=== PATIENT | male | born 1965 | race Hispanic/Latino ===

== ENCOUNTER 2023-10-22 10:18 | Emergency (ER) | payer OTHER ==
[~2023-10-22] VITALS: Ht 165.1 cm; Wt 83.9 kg
[2023-10-22 10:42] LABS: APPEARANCE,URINE CLEAR (CLEAR); BILIRUBIN,URINE NEGATIVE (NEGATIVE); COLOR,URINE LIGHT-YELLOW (YELLOW); GLUCOSE, URINE (UA) NEGATIVE (NEGATIVE); KETONES,URINE NEGATIVE (NEGATIVE); LEUKOCYTE ESTERASE ,URINE NEGATIVE Leu/uL (NEGATIVE); NITRATE,URINE NEGATIVE (NEGATIVE); OCCULT BLOOD,URINE MODERATE (NEGATIVE); PH,URINE 6.5 (5.0-8.0); PROTEIN,URINE NEGATIVE (NEGATIVE); UROBILINOGEN,URINE 0.2 mg/dL (0.2-1.0)
[2023-10-22 10:46] LABS: ADD UA MICROSCOPIC YES
[2023-10-22 10:47] LABS: BACTERIA,URINE RARE /HPF (None Seen)
[2023-10-22 11:15] LABS: BASOPHILS # (AUTO) 0.03 K/uL (0.00-0.20); BASOPHILS % (AUTO) 0.5 % (0.0-5.0); EOSINOPHILS # (AUTO) 0.07 K/uL (0.00-0.70); EOSINOPHILS % (AUTO) 1.1 % (0.0-8.0); HEMATOCRIT 42.8 % (42-54); IMMATURE GRANULOCYTE ABSOLUTE 0.02 K/uL (0-1); LYMPHOCYTES % (AUTO) 31.9 % (21.0-51.0); MEAN CORPUSCULAR HEMOGLOBIN 32.6 pg (27.0-33.0); MEAN CORPUSCULAR HGB CONC 33.9 g/dL (32.0-36.0); MEAN CORPUSCULAR VOLUME 96.2 fL (79-99); MONOCYTES # (AUTO) 0.5 K/uL (0.1-1.0); MONOCYTES % (AUTO) 8.8 % (3.0-13.0); NEUTROPHILS # (AUTO) 3.5 K/uL (1.8-7.7); NEUTROPHILS % (AUTO) 57.4 % (40.0-77.0); PLATELET COUNT (AUTO) 235 K/uL (130-400); RED BLOOD CELL COUNT(AUTO) 4.45 MIL/uL (4.50-6.20); RED CELL DISTRIBUTION WIDTH 12.5 % (11.0-15.5); WHITE BLOOD COUNT (AUTO) 6.1 K/uL (4.8-10.8)
[2023-10-22 11:21] LABS: CREATININE 0.9 mg/dL (0.5-1.3); POTASSIUM 4.1 mmol/L (3.5-5.1)
[2023-10-22 11:26] LABS: BILIRUBIN,TOTAL 1.3 mg/dL (0.2-1.0); TOTAL PROTEIN, SERUM 7.7 g/dL (6.0-8.3)
[2023-10-22 11:33] LABS: INR 1.01 (0.85-1.15); PROTHROMBIN TIME 10.9 SEC (9.6-11.6)
[2023-10-22 11:34] LABS: PARTIAL THROMBOPLASTIN TIME 25.4 SEC (26.3-35.5)
[2023-10-22 12:19] VITALS: BP 147/88; PULSE 61; RESP 16; O2SAT 99
== END 2023-10-22 12:19 | disposition home or self-care (01) ==
LOC: EDH 10:18 → EDBD 10:18 → EDH 12:19
DX: R31.9 Hematuria, unspecified (principal)
CPT/HCPCS: 36415; 80053; 81001; 85025; 85610; 85730

== ENCOUNTER → 2023-12-24 | Outpatient (CLI) | payer OTHER ==
[2023-12-24 10:58] LABS: APPEARANCE,URINE CLEAR (CLEAR); BILIRUBIN,URINE NEGATIVE (NEGATIVE); COLOR,URINE COLORLESS (YELLOW); GLUCOSE, URINE (UA) NEGATIVE (NEGATIVE); KETONES,URINE NEGATIVE (NEGATIVE); LEUKOCYTE ESTERASE ,URINE NEGATIVE Leu/uL (NEGATIVE); NITRATE,URINE NEGATIVE (NEGATIVE); OCCULT BLOOD,URINE MODERATE (NEGATIVE); PH,URINE 6.5 (5.0-8.0); PROTEIN,URINE NEGATIVE (NEGATIVE); UROBILINOGEN,URINE 0.2 mg/dL (0.2-1.0)
[2023-12-24 11:40] LABS: ADD UA MICROSCOPIC YES
== END | disposition home or self-care (01) ==
LOC: LAB 10:12
PROVIDERS: ATTEND Internal Medicine Nephrology
DX: Z12.5 Encounter for screening for malignant neoplasm of prostate (principal); N39.0 Urinary tract infection, site not specified
CPT/HCPCS: 36415; 81001; 84153; 87086

== ENCOUNTER → 2024-01-13 | Outpatient (CLI) | payer OTHER ==
[2024-01-13 15:37] LABS: APPEARANCE,URINE CLEAR (CLEAR); BILIRUBIN,URINE NEGATIVE (NEGATIVE); COLOR,URINE LIGHT-YELLOW (YELLOW); GLUCOSE, URINE (UA) NEGATIVE (NEGATIVE); KETONES,URINE NEGATIVE (NEGATIVE); LEUKOCYTE ESTERASE ,URINE 75 Leu/uL (NEGATIVE); NITRATE,URINE NEGATIVE (NEGATIVE); OCCULT BLOOD,URINE LARGE (NEGATIVE); PH,URINE 6.5 (5.0-8.0); PROTEIN,URINE 10 mg/dL (NEGATIVE); UROBILINOGEN,URINE 0.2 mg/dL (0.2-1.0)
[2024-01-13 15:46] LABS: ADD UA MICROSCOPIC YES
[2024-01-13 15:52] LABS: MUCUS,URINE RARE LPF (None Seen); RBC,URINE 51-100 /HPF (0-1); SQUAMOUS EPITHELIAL CELL,UR RARE /HPF (0-2); WBC,URINE 51-100 /HPF (0-1)
[2024-01-13 16:11] LABS: HIV 1&2 ANTIBODY Non-Reactive (Negative); HIV-1 p24 Antigen Non-Reactive (Negative)
[2024-01-15 15:04] LABS: RAPID PLASMA REAGIN NONREACTIVE (NONREACTIVE)
== END | disposition home or self-care (01) ==
LOC: LAB 14:12
PROVIDERS: ATTEND Internal Medicine Nephrology
DX: Z11.3 Encounter for screening for infections with a predominantly sexual mode of transmission (principal)
CPT/HCPCS: 36415; 81001; 86592; 86701; 87086; 87390; 87491; 87591

== ENCOUNTER → 2024-02-12 | Outpatient (CLI) | payer OTHER ==
[2024-02-12 13:57] LABS: ALBUMIN 3.9 g/dL (3.5-5.0); BILIRUBIN,DIRECT 0.2 mg/dL (0.0-0.3); BILIRUBIN,TOTAL 0.9 mg/dL (0.2-1.0); CREATININE 0.9 mg/dL (0.5-1.3); TOTAL PROTEIN, SERUM 7.5 g/dL (6.0-8.3)
== END | disposition home or self-care (01) ==
LOC: LAB 12:29
PROVIDERS: ATTEND Urology
DX: C61 Malignant neoplasm of prostate (principal)
CPT/HCPCS: 36415; 80076; 82565; 84520

== ENCOUNTER → 2024-02-17 | Outpatient (CLI) | payer OTHER ==
--- NOTE | 2024-02-18 09:22 | HMCIMG ---
NM BONE SCAN WHOLE BODY REASON: C61 Malignant Prostate CA COMPARISON: CT abdomen and pelvis 02/18/2024 TECHNIQUE: Whole-body and spot images are obtained following administration of 25 mCi technetium 99 MDP. FINDINGS: There is abnormal uptake in the right half of the L5 vertebral body. Correlation with CT scan shows a subtle corresponding lesion. Findings are consistent with metastatic disease. There is an additional focal lesion in a left posterior rib, approximately the eighth rib. There is a small lesion mid shaft of the right femur. There is a small lesion in the neck of the proximal left femur, this shows is a sclerotic lesion on the CT scan Remainder of exam is unremarkable. There are no other focal osseous IMPRESSION: 1. Findings consistent with osseous metastatic disease in the L5 vertebral body, the left posterior eighth rib, mid shaft of the right femur and in the neck of the proximal left femur.
== END | disposition home or self-care (01) ==
LOC: RAH 12:56
PROVIDERS: ATTEND Urology
DX: C61 Malignant neoplasm of prostate (principal)
CPT/HCPCS: 78306; A9503

== ENCOUNTER → 2024-02-18 | Outpatient (CLI) | payer OTHER ==
[~2024-02-18] MED LIST: IOHEXOL 350 MG/ML 100ML INFUS..BTL IV ONE
--- NOTE | 2024-02-18 10:53 | HMCIMG ---
CT ABDOMEN/PELVIS W/WO CONTRAS REASON: PROSTATE CA COMPARISON: None. TECHNIQUE: Images are obtained from lung bases to the symphysis pubis following IV contrast, 100 cc Omnipaque 350. Oral contrast was administered as well. FINDINGS: Lung bases are clear. There are no focal liver lesions. There are normal-appearing kidneys.. Spleen and pancreas appear unremarkable. The gallbladder appears normal as well. Bowel loops appear unremarkable. This includes normal appearance of the appendix There is no evidence of free fluid or intraperitoneal air. There are no focal fluid collections. There is periaortic and pelvic lymphadenopathy. Periaortic lymph nodes include a 1.9 cm node in the left renal hilum and a 3.2 cm node anterior to the inferior vena cava near the lower pole of the right kidney. There is bulky lymphadenopathy in the right common and internal iliac region, there is right-sided lymph node mass measuring 7.4 x 5.5 cm axial dimension. There are some additional smaller obturator nodes present bilaterally. Prostate measures 5.5 x 4.8 cm axial dimension. The superior margin of the prostate appears to invade the base of the urinary bladder in the region of the trigone, present to the right. The urinary bladder appears thick-walled but is nondistended. The anterior abdominal wall is intact 0 reason bone scan was positive in multiple areas. There is a subtle lesion to the right of midline in the L5 vertebral body measuring 3.8. The lesion in the left femoral neck is present as a sclerotic 2.4 cm area on the CT scan. Remaining visualized osseous structures appear unremarkable. IMPRESSION: 1. 1. Retroperitoneal and pelvic lymphadenopathy most pronounced in the right hemipelvis as described above. 2. Enlarged prostate, prostate appears to invade the right side of the base of the bladder 3. Osseous metastatic disease also seen on accompanying bone scan 02/17/2024. CT was performed with one or more following dose reduction techniques: automated exposure control, adjustment of the mA and kv according to patient's size, or use of a iterative reconstruction technique.
== END | disposition home or self-care (01) ==
LOC: RAH 07:07
PROVIDERS: ATTEND Urology
DX: C61 Malignant neoplasm of prostate (principal); C79.51 Secondary malignant neoplasm of bone; N40.0 Benign prostatic hyperplasia without lower urinary tract symptoms
CPT/HCPCS: 74178; Q9967

== ENCOUNTER → 2024-03-29 | Outpatient (CLI) | payer OTHER ==
[2024-03-29 08:47] LABS: BASOPHILS # (AUTO) 0.03 K/uL (0.00-0.20); BASOPHILS % (AUTO) 0.6 % (0.0-5.0); EOSINOPHILS # (AUTO) 0.13 K/uL (0.00-0.70); EOSINOPHILS % (AUTO) 2.5 % (0.0-8.0); HEMATOCRIT 41.1 % (42-54); IMMATURE GRANULOCYTE ABSOLUTE 0.03 K/uL (0-1); LYMPHOCYTES % (AUTO) 37.8 % (21.0-51.0); MEAN CORPUSCULAR HEMOGLOBIN 32.4 pg (27.0-33.0); MEAN CORPUSCULAR HGB CONC 33.6 g/dL (32.0-36.0); MEAN CORPUSCULAR VOLUME 96.5 fL (79-99); MONOCYTES # (AUTO) 0.5 K/uL (0.1-1.0); MONOCYTES % (AUTO) 8.9 % (3.0-13.0); NEUTROPHILS # (AUTO) 2.6 K/uL (1.8-7.7); NEUTROPHILS % (AUTO) 49.6 % (40.0-77.0); PLATELET COUNT (AUTO) 262 K/uL (130-400); RED BLOOD CELL COUNT(AUTO) 4.26 MIL/uL (4.50-6.20); RED CELL DISTRIBUTION WIDTH 12.5 % (11.0-15.5); WHITE BLOOD COUNT (AUTO) 5.3 K/uL (4.8-10.8)
[2024-03-29 08:57] LABS: HEMOGLOBIN A1C 5.9 % (4.0-6.0)
[2024-03-29 09:10] LABS: APPEARANCE,URINE CLEAR (CLEAR); BILIRUBIN,URINE NEGATIVE (NEGATIVE); COLOR,URINE COLORLESS (YELLOW); GLUCOSE, URINE (UA) NEGATIVE (NEGATIVE); KETONES,URINE NEGATIVE (NEGATIVE); LEUKOCYTE ESTERASE ,URINE NEGATIVE Leu/uL (NEGATIVE); NITRATE,URINE NEGATIVE (NEGATIVE); OCCULT BLOOD,URINE SMALL (NEGATIVE); PROTEIN,URINE NEGATIVE (NEGATIVE); UROBILINOGEN,URINE 0.2 mg/dL (0.2-1.0)
[2024-03-29 09:12] LABS: ADD UA MICROSCOPIC YES; ALBUMIN 3.7 g/dL (3.5-5.0); BILIRUBIN,TOTAL 0.8 mg/dL (0.2-1.0); POTASSIUM 4.5 mmol/L (3.5-5.1); THYROID STIMULATING HORMONE 3.06 uIU/mL (0.36-3.74); TOTAL PROTEIN, SERUM 7.7 g/dL (6.0-8.3)
[2024-03-29 09:17] LABS: RBC,URINE 0-1 /HPF (0-1); WBC,URINE 0-1 /HPF (0-1)
== END | disposition home or self-care (01) ==
LOC: LAB 08:02
PROVIDERS: ATTEND Internal Medicine Nephrology
DX: Z00.01 Encounter for general adult medical examination with abnormal findings (principal); C61 Malignant neoplasm of prostate
CPT/HCPCS: 36415; 80053; 80061; 81001; 83036; 84443; 85025